=== PATIENT | male | born 2005 | race Caucasian/White ===

== ENCOUNTER 2024-07-19 18:05 | Emergency (ER) | payer MEDICAID, SELFPAY ==
[2024-07-19 18:18] VITALS: BP 147/77; PULSE 97; RESP 20; TEMP 37.1; O2SAT 100
[2024-07-19 18:33] VITALS: BP 128/98; BP 132/77; PULSE 85; PULSE 90; RESP 18; TEMP 36.9; O2SAT 99; BMI 24.3
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
[2024-07-19 21:56] VITALS: BP 124/78; PULSE 78; RESP 16; TEMP 36.9; O2SAT 99
[2024-07-19] MEDS: Ibuprofen 400 MG TABLET PO (21:57)
[2024-07-19] MEDS: NeoMYCIN/Polymyxin/HC Otic Sus 10 ML DRPBTL 3 DROP EAR-LEFT (21:58)
[2024-07-19] MEDS: Acetaminophen 325 MG TABLET 975 MG PO (21:58)
[2024-07-19 22:00] VITALS: BP 124/78; PULSE 78; RESP 16; TEMP 36.9; O2SAT 99
[2024-07-19 22:05] VITALS: BP 124/78; PULSE 78; RESP 16; TEMP 36.9; O2SAT 99
== END 2024-07-19 22:08 ==
PROVIDERS: Emergency Provider Emergency Medicine
DX: S01.312A Laceration without foreign body of left ear, initial encounter (principal); S30.0XXA Contusion of lower back and pelvis, initial encounter; M25.552 Pain in left hip; R42 Dizziness and giddiness; X58.XXXA Exposure to other specified factors, initial encounter; Y93.9 Activity, unspecified; Y92.9 Unspecified place or not applicable; Y99.8 Other external cause status
CPT/HCPCS: 99283; 99284

== ENCOUNTER 2024-10-22 08:06 | Emergency (ER) | payer MEDICAID, SELFPAY ==
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
--- NOTE | ~2024-10-22 | XR_ITS ---
EXAMINATION: XR second digit, LEFT CLINICAL INFORMATION: trauma COMPARISON: None available. TECHNIQUE: PA and lateral views second digit of the left hand. PA view left hand. FINDINGS: No acute cortical disruption or malalignment. No lytic or blastic lesions. No metallic or radiopaque foreign body. No subcutaneous emphysema. The metacarpal bones are intact. The phalanges are intact with normal alignment. XR/XR finger LT min 2V IMPRESSION: No acute fracture or dislocation. Electronically signed by: Parviz Gardner MD 10/22/2024 09:59 AM EDT
[2024-10-22 08:09] VITALS: BP 136/89; BP 138/84; PULSE 102; PULSE 112; RESP 18; TEMP 37.2; O2SAT 97; O2SAT 98; BMI 21.6
--- OUTSIDE RECORDS SUMMARY | 2024-10-22 08:41 | XMS_ITS | Encounter Summary ---
Author Organization [facility] Address [address] [place] [address] Phone Care Team Providers Care Machine Package Sealer Name Role Phone Issa Kline MD Primary Care Provider Lazarus martinez Encounter Details Date Type Department Care Team (Late st Contact Info) Description 12/30/2015 Documentation [facility] [place] [facility] [address] [place] [address] Family Medicine, Physician [address] [place] [address] Social History Tobacco Use Types Packs/Day Years Used Date Smoking Tobacco: Never Assessed Sex and Gender Information Value Date Recorded Sex Assigned at Male 10/24/2019 10:10 PM EDT Legal Sex Male 5:21 PM EDT Gender Identity Male 10/24/2019 10:10 PM EDT Sexual Orientation Straight 10/24/2019 10 :10 PM EDT documented as of this encounter Plan of Treatment Not on file documented as of this encounter Visit Diagnoses Not on filedocumented in this encounter Care Teams Machine Package Sealer Relationship Specialty Start Date End Date Issa Kline MD PCP - General 11/18/16 02/06/24 documented as of this encounter
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
[2024-10-22 10:00] VITALS: BP 135/85; PULSE 64; RESP 16; TEMP 36.6; O2SAT 98
[2024-10-22 10:11] VITALS: BP 135/85; PULSE 64; RESP 16; TEMP 36.6; O2SAT 98
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
== END 2024-10-22 11:10 ==
PROVIDERS: Emergency Provider Emergency Medicine
DX: S09.90XA Unspecified injury of head, initial encounter (principal); S63.611A Unspecified sprain of left index finger, initial encounter; V43.92XA Unspecified car occupant injured in collision with other type car in traffic accident, initial encounter; Y93.9 Activity, unspecified; Y92.9 Unspecified place or not applicable; Y99.9 Unspecified external cause status; Z65.3 Problems related to other legal circumstances
CPT/HCPCS: 73140; 99283; 99284

== ENCOUNTER → 2024-10-22 09:15 | Outpatient (BNV) | payer MEDICAID, SELFPAY | PROVIDERS: Emergency Provider Emergency Medicine; Visit Provider Radiology Diagnostic Radiology | DX: S61.412A Laceration without foreign body of left hand, initial encounter (principal) | CPT/HCPCS: 73140 ==